=== PATIENT | female | born 1955 | race Caucasian/White ===

== ENCOUNTER 2022-01-03 11:33 | Emergency (ER) | payer OTHER ==
[~2022-01-03] VITALS: Ht 162.6 cm; Wt 81.6 kg
[2022-01-03 11:34] VITALS: BP 178/98
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
[2022-01-03] MEDS ORDERED: KETOROLAC 30 MG/ML VIAL IM ONE (12:10)
--- NOTE | 2022-01-03 12:32 | NUR ---
PT REQUESTING TO LEAVE STATING "ITS TAKING TOO LONG, MY RIDE IS HERE". PATIENT ELOPED FROM FACILITY. DISCHARGE INSTRUCTIONS NOT GIVEN TO PATIENT. DR. BLOOM NOTIFIED.
== END 2022-01-03 12:32 | disposition left against medical advice (07) ==
LOC: MED 11:33
DX: S29.011A Strain of muscle and tendon of front wall of thorax, initial encounter (principal); E11.9 Type 2 diabetes mellitus without complications; I10 Essential (primary) hypertension; Z79.4 Long term (current) use of insulin; Z79.899 Other long term (current) drug therapy; Z88.5 Allergy status to narcotic agent; V89.2XXA Person injured in unspecified motor-vehicle accident, traffic, initial encounter; Y93.89 Activity, other specified; Y92.89 Other specified places as the place of occurrence of the external cause; Y99.8 Other external cause status
CPT/HCPCS: 99281; 99283